=== PATIENT | male | born 1975 | race Caucasian/White ===

== ENCOUNTER 2020-05-29 18:10 | Emergency (ER) | payer MEDICARE ==
[~2020-05-29 18:10] MED LIST: AZITHROMYCIN500 MG PO; BUTALB-ACETAMI1 EAC1 PO; CEFDINIR300 MG PO; ERYTHROMYCIN O3.5 GM OU; NORCO 5-325 TA1 EACH PO; NORCO 7.5-3251 EACH PO
[2020-05-29 19:15] LABS: HEMOGLOBIN 15.1 gm/dl (14.0-17.5); RED BLOOD COUNT 4.83 M/UL (4.20-5.50)
[2020-05-29 19:24] LABS: BUN/CREATININE RATIO 18 (0-10)
[2020-05-29] MEDS ORDERED: BENTYL 20MG TAB20 MG PO (20:59)
[2020-05-29] MEDS ORDERED: ZOFRAN4 MG PO (20:59)
== END 2020-05-29 21:23 | disposition home or self-care (01) ==
LOC: ER1 18:10
PROVIDERS: Physician Assistant Medical
DX: R10.9 Unspecified abdominal pain (principal); R11.0 Nausea; I10 Essential (primary) hypertension
CPT/HCPCS: 80053; 81001; 82272; 83605; 85025; 85610; 85652; 86140; 96374; 96375; 99284; J2270; J2405; J7030; Q9967